=== PATIENT | female | born 1970 | race Caucasian/White ===

== ENCOUNTER 2025-05-09 06:16 | Day surgery (SDC) | payer OTHER ==
[2025-05-07 09:38] VITALS: BMI 33.2
[2025-05-09] MEDS ORDERED: DEXAMETHASONE SOD PHOSPHATE 10 MG/1 ML VIAL ONE (08:17)
[2025-05-09] MEDS ORDERED: LIDOCAINE HCL/PF 1% SDV 5ML VIAL ONE ×2 (08:17→11:00)
[2025-05-09] MEDS ORDERED: ACETAMINOPHEN 500 MG TABLET (FP) PO PRN (09:11)
[2025-05-09] MEDS: IOHEXOL 180 MG/1 ML ML IJ ONE ×3 (11:33)
[2025-05-09] MEDS: DEXAMETHASONE SOD PHOSPHATE 10 MG/1 ML VIAL IVPUSH ONE ×3 (11:33)
[2025-05-09] MEDS: LIDOCAINE HCL 1% PRESERVATIVE FREE - 30ML VIAL IJ ONE ×3 (11:33)
[2025-05-09 11:55] VITALS: RESP 18
[2025-05-09 13:30] VITALS: BP 127/81; PULSE 84; TEMP 97.2
== END 2025-05-09 12:25 | disposition home or self-care (01) ==
LOC: JASU-SURG 06:16
PROVIDERS: ATTEND Pain Medicine Pain Medicine
PROC: 3E0R3BZ Introduction of Anesthetic Agent into Spinal Canal, Percutaneous Approach (ICD-10-PCS; 2025-05-09)
PROC: 3E0R33Z Introduction of Anti-inflammatory into Spinal Canal, Percutaneous Approach (ICD-10-PCS; principal; 2025-05-09 11:15)
DX: M54.16 Radiculopathy, lumbar region (principal)
CPT/HCPCS: 76000-TC-FY; 81025; J1100

== ENCOUNTER 2025-06-19 10:21 | Emergency (ER) | payer OTHER ==
[2025-06-19 10:35] VITALS: BP 153/87; PULSE 91; RESP 15; TEMP 97.9; BMI 32.1
[2025-06-19] MEDS ORDERED: IBUPROFEN 600 MG TABLET (FP) PO ONE (10:50)
[2025-06-19] MEDS: IBUPROFEN 600 MG TABLET (FP) PO ONE (10:57)
[2025-06-19] MEDS ORDERED: DIPHTH,PERTUSS(ACELL),TET 0.5 ML DISP.SYRIN IM ONE (11:03)
[2025-06-19] MEDS: DIPHTH,PERTUSS(ACELL),TET 0.5 ML DISP.SYRIN IM ONE (11:19)
[2025-06-19] MEDS ORDERED: BACITRACIN 0.9 GM PACKET TP ONE (11:45)
[2025-06-19] MEDS ORDERED: BACITRACIN ZINC 15 GM TUBE TOPICAL OINTMENT ONE (11:45)
== END 2025-06-19 12:00 | disposition home or self-care (01) ==
LOC: JERFT 10:21
PROC: 3E0234Z Introduction of Serum, Toxoid and Vaccine into Muscle, Percutaneous Approach (ICD-10-PCS; principal; 2025-06-19)
DX: S42.035A Nondisplaced fracture of lateral end of left clavicle, initial encounter for closed fracture (principal); S40.812A Abrasion of left upper arm, initial encounter; S80.812A Abrasion, left lower leg, initial encounter; Z23 Encounter for immunization; V03.10XA Pedestrian on foot injured in collision with car, pick-up truck or van in traffic accident, initial encounter
CPT/HCPCS: 73030-TC-LT-FY; 73070-TC-LT-FY; 73110-TC-LT-FY; 73130-TC-LT-FY; 90715; 99284-25